=== PATIENT | male | born 1960 | race Caucasian/White ===

== ENCOUNTER → 2016-11-04 | Outpatient (CLI) | payer OTHER ==
[~2016-11-04] MED LIST: LISI-725 PO; MISC1TAB74 PO
[2016-11-04 12:22] LABS: BASO % 0.3 %; BASO ABS # 0.02 K/uL (0-0.2); COMPLETE YES; EOS % 3.7 %; HEMATOCRIT 53.9 % (42-52); IG% 0.8 %; LYMPH % 40.2 %; LYMPH ABS # 3.08 K/uL (1.2-3.4); MEAN CELL VOLUME 91.8 fL (80-100); MEAN CORPUSCULAR HEMOGLOBIN 31.9 pg (25-34); MEAN CORPUSCULAR HGB CONC 34.7 g/dl (32-36); MEAN PLATELET VOLUME 11.3 fL (7.4-10.4); MONO % 9.6 %; NEUT % 45.4 %; PLATELET COUNT 184 K/uL (130-400); RED BLOOD COUNT 5.87 M/uL (4.7-6.1); WHITE BLOOD COUNT 7.67 K/uL (4.8-10.8)
[2016-11-04 13:56] LABS: ALT/SGPT 70 U/L (12-78); AST/SGOT 42 U/L (15-37); BLOOD UREA NITROGEN 13 mg/dl (7-18); BUN/CREATININE RATIO 13.5 (10-20); CALCIUM 9.2 mg/dl (8.5-10.1); CARBON DIOXIDE 25 mmol/L (21-32); CHLORIDE 107 mmol/L (98-107); CREATININE 0.96 mg/dl (0.60-1.40); GLUCOSE 85 mg/dl (70-99); HDL CHOLESTEROL 37 mg/dl; POTASSIUM 4.6 mmol/L (3.5-5.1); SODIUM 142 mmol/L (136-145)
[2016-11-04 14:06] LABS: ALB/GLOB RATIO 1.1 (0.9-2); ALKALINE PHOSPHATASE 72 U/L (45-117); CHOLESTEROL 154 mg/dl (0-200); CHOLESTEROL/HDL RATIO 4.2; LDL CHOLESTEROL CALCULATED 69 mg/dl; THYROID STIMULATING HORMONE 0.616 uIu/ml (0.300-4.500); TRIGLYCERIDES 239 mg/dl (0-150); VERY LOW DENSITY LIPOPROT CALC 48 mg/dl
[2016-11-05 13:04] LABS: URINE APPEARANCE TURBID (CLEAR); URINE COLOR DK YELLOW; URINE NITRITE NEG (NEG); URINE SPECIFIC GRAVITY 1.033 (1.000-1.030); UROBILINOGEN NEG (NEG)
[2016-11-05 13:18] LABS: MANUAL MICROSCOPIC REQUIRED? NO; REVIEW REQ? NO; URINE BILIRUBIN NEG (NEG)
[2016-11-05 13:45] LABS: RATIO 84.7 mcg/mg (0-30.0)
== END | disposition home or self-care (01) ==
LOC: C.LABBFT 07:41
PROVIDERS: ATTEND Internal Medicine
DX: I10 Essential (primary) hypertension (principal); R39.89 Other symptoms and signs involving the genitourinary system; D75.1 Secondary polycythemia

== ENCOUNTER 2025-05-09 17:20 | Inpatient (IN) ==
[2025-05-09 17:46] LABS: Hematocrit (blood only) 45.7 % (42.0-52.0); Hemoglobin 15.4 g/dl (14.0-18.0); Immature Granulocytes # (auto) 0.04 K/uL (0.01-0.20); Immature Granulocytes % (auto) 0.5 %; Mean Corpuscular Hemoglobin 29.9 pg (25.0-34.0); Mean Corpuscular Volume 88.7 fL (80.0-100.0); Platelet Count 239 K/uL (130-400); RDW Standard Deviation 55.9 fL (36.4-46.3); Red Blood Count 5.15 M/uL (4.70-6.10); White Blood Count 8.21 K/ul (4.8-10.8)
[2025-05-09 18:11] LABS: Appearance Urine Clear (Clear); Bacteria Urine Automated None Seen (None Seen); Cast Urine Automated 0-2 /lpf (0-2); Glucose Urine UA Negative (Negative); WBC Urine Automated 0-5 /hpf (0-5)
[2025-05-09 18:16] LABS: Alanine Aminotransferase 158 U/L (7-52); Albumin Globulin Ratio 1.5 (0.9-2); Alkaline Phosphatase 316 U/L (34-104); Anion Gap 8 (3-11); Bilirubin,Total 19.9 mg/dl (0.2-1.0); Blood Urea Nitrogen 22 mg/dl (6-23); Calcium 9.3 mg/dl (8.6-10.3); Carbon Dioxide 23 mmol/L (21-32); Chloride 109 mmol/L (98-107); Creatinine Clr Calc Pharmacy 54.4 ml/min; Globulin 2.8 gm/dl (2.5-4.0); Glucose 98 mg/dl (70-99(Fasting)); Potassium 3.7 mmol/L (3.5-5.1); Sodium 140 mmol/L (136-145); Total Protein 7.0 gm/dl (6.0-8.3)
--- NOTE | 2025-05-09 19:15 | Emergency Department Note ---
Impression & Plan Elevated bilirubin, High serum chloride, Transaminitis, Dilated cbd, acquired ED Provider Note NAME: GLENN CRUZ AGE: 64 SEX: M : 1960 ARRIVES VIA: Walk-In INFORMANT: Patient ED PROVIDER(S): Justin Vang DO CHIEF COMPLAINT: Painless jaundice HPI: Patient is a 64-year-old male who presents to the ER as he notes that over the past 2 weeks he noticed that his stools have become very pale. He notes his urine has become very dark. He followed up with his PCP and had blood work and his bilirubin was elevated and consequently he was sent in here. He denies any headache or change in vision. No chest pain or shortness of breath. provides additional history notes that he has become jaundiced over the past week. He notes he is very itchy. Denies any other complaints. ADDITIONAL HISTORY OBTAINED: Per HPI Chronic Medical/Social Conditions Affecting Care: Per HPI PAST MEDICAL HISTORY:See Below PAST SURGICAL HISTORY:See Below FAMILY HISTORY:See Below SOCIAL HISTORY:See Below HOME MEDICATIONS:See Below ALLERGIES:See Below VITALS:See Below PHYSICAL EXAMINATION: GENERAL: Sitting up in bed, alert, well appearing, well nourished, no distress, non-toxic EYE EXAM: Scleral icterus. PERRL and EOM's grossly intact. OROPHARYNX: no exudate, no erythema, lips, buccal mucosa, and tongue normal and mucous membranes are moist NECK: supple, no nuchal rigidity, no adenopathy, non-tender LUNGS: Clear to auscultation. Normal chest wall mechanics HEART: no murmurs, S1 normal and S2 normal ABDOMEN: abdomen soft, non-tender, normo-active bowel sounds, no masses, no rebound or guarding. BACK: Back is symmetrical on inspection and there is no deformity, no midline tenderness, no CVA tenderness. SKIN: no rashes and no bruising UPPER EXTREMITIES: upper extremities are grossly normal. LOWER EXTREMITIES: No pitting edema. NEURO EXAM: Normal sensorium, cranial nerves II-XII grossly intact, normal speech, no gross weakness of arms, no gross weakness of legs. MEDICAL DECISION MAKING: Patient is a 64-year-old male who presents ER for the above-stated complaint. IV was established and blood work was obtained. Labs showed no significant leukocytosis or anemia. BMP with slightly elevated chloride at 109. T. bili elevated at 20. LFTs elevated at 150. Lipase was not reportable. UA did have nitrates but I do favor this secondary to the elevated bilirubin. CT abdomen pelvis showed dilation of the CBD question if this secondary to stone versus stricture or with some lymphadenopathy. Discussed with their shrimp peeling machine operator Dr. Gilbert who recommended transfer. Discussed with [facility] and patient was accepted by Dr. Sanchez. The transfer center notes that patient will not be receiving a bed tonight and likely at some point tomorrow and consequently discussed with the hospitalist Dr. Chase for further evaluation management treatment. Antibiotics not given as patient was hemodynamically stable does not appear to be infected. CT abdomen pelvis also suggested proteinaceous cyst versus some with hemorrhage present but hemoglobin was stable and do favor this is proteinaceous in nature. Consults/Care Managements Discussions: Per MDM Triage Nursing notes reviewed. Limited review of prior medical records performed Vital Signs: reviewed and remarkable for no significant abnormalities Differential diagnosis: Differential diagnoses includes but is not limited to gastritis, peptic ulcer disease, GERD, gallbladder disease, pancreatitis, small bowel obstruction, appendicitis, diverticulitis, hernia, urinary tract infection, torsion, /ectopic (if female), perforation, trauma, infectious. ER treatment provided: See below Diagnostics interpreted by me include EKG and cardiac monitoring as listed below: -Cardiac Monitoring: An order was placed for continuous cardiac monitoring. The monitor shows a rate of 60 with sinus rhythm. -ECG: none -Laboratory studies:Interpreted by me as stated above in MDM and shown below. Imaging studies: Xrays: As interpreted by me:none CTs show: CT abdomen pelvis per my preliminary interpretation showed no obvious bowel obstruction CT abdomen pelvis per radiology as described above Procedures:none Critical Care: None Past Med/Surg History Problem List (Updated 05/10/25 @ 00:51 by Justin Vang DO) Dilated cbd, acquired (Acute) Transaminitis (Acute) High serum chloride (Acute) Elevated bilirubin (Acute) Hypertriglyceridemia Prediabetes Right knee pain Hepatitis C No more than 2g Tylenol daily No NSAIDS allowed. Tubular adenoma Dyslipidemia Secondary polycythemia Nicotine dependence Hypertension Medical History Dyslipidemia Fatty liver History of hepatitis C Hypertension Kidney stones Nicotine dependence Secondary polycythemia Tubular adenoma Surgical History History of arthroscopy of right knee Status post trigger finger release History of carpal tunnel surgery of right wrist History of colonoscopy with polypectomy History of tooth extraction History of wisdom tooth extraction H/O varicose vein ligation S/P cholecystectomy S/P appendectomy Family History Father Colorectal cancer Other No family history of adverse response to anesthesia Denies family history of Ovarian cancer Prostate cancer Myocardial infarction Breast cancer Social History (Updated 02/23/25 @ 06:55 by LUISA José) Smoking Status: Former smoker Tobacco Type: Cigarettes Age Started Using Tobacco: 19; Age Quit Using Tobacco: 61; packs per day: 0.5; Cigarettes Per Day: 10; Second Hand Exposure: No; Do You Dip or Chew Tobacco: No; Hx Alcohol Use: Yes Alcohol type: beer Hx Substance Use: No Preferred Language: Uzbek Communication Ability: Effective Mate Chief Required: No Beliefs That Will Affect Care: None marital status: Current Living Situation: Spouse current occupational status: retired Feels Safe at Home: Yes Diet: regular caffeine: Yes Dental Care, Regularly: No Physical Activity Frequency: Daily Seatbelt Use: always Sunscreen Use: Yes Assistive Devices: Glasses Allergies Allergies Allergy/AdvReac Type Severity Reaction Status Date / Time amlodipine Allergy Mild SWELLING Unverified 05/09/25 19:22 IN ANKLES NSAIDS (Non-Steroidal AdvReac Unknown Unknown Verified 05/09/25 19:18 Anti-Inflamma Home Meds Home Medications Medication Instructions Recorded Confirmed aspirin 81 mg tablet,delayed 81 mg PO DAILY 01/21/23 05/09/25 release Previous Rx's Medication Instructions Recorded green tea leaf extract 150 mg 150 mg PO DAILY #30 caps 05/01/22 capsule atorvastatin 20 mg tablet 20 mg PO QPM #90 tabs 01/06/25 lisinopril 40 mg tablet 40 mg PO DAILY #90 tabs 02/22/25 Results & Data (ED) Vital Signs Vital Signs - 24 hr 05/09/25 17:22 05/09/25 18:51 05/09/25 19:04 Temperature 36.8 C Temperature Source Temporal Artery Scan Pulse Rate 64 54 L Pulse Rate [Apical] 55 L Pulse Rhythm [Apical] Regular Pulse Strength [Apical] Normal Respiratory Rate 17 22 Respiratory Effort / Characteristics Non-Labored Spontaneous Respiratory Depth Normal Normal Respiratory Pattern Regular Regular Blood Pressure 84/73 L Blood Pressure [Right Arm] 122/84 Blood Pressure Mean 76 Blood Pressure Mean [Right Arm] 96 Blood Pressure Position Sitting Blood Pressure Position [Right Arm] Semi-fowlers Pulse Oximetry 96 98 Oxygen Delivery Method Room Air Room Air Sepsis Recent Fever Within 48 Hours No Sepsis New/Unexplained Change in Mental Status No Sepsis Action Taken by Nursing No Action Required 05/09/25 20:00 05/09/25 22:00 Temperature Temperature Source Pulse Rate Pulse Rate [Apical] 57 L 54 L Pulse Rhythm [Apical] Pulse Strength [Apical] Respiratory Rate 18 20 Respiratory Effort / Characteristics Non-Labored Spontaneous Non-Labored Spontaneous Respiratory Depth Normal Normal Respiratory Pattern Blood Pressure Blood Pressure [Right Arm] 123/82 130/82 Blood Pressure Mean Blood Pressure Mean [Right Arm] 95 98 Blood Pressure Position Blood Pressure Position [Right Arm] Pulse Oximetry 98 94 Oxygen Delivery Method Room Air Room Air Sepsis Recent Fever Within 48 Hours Sepsis New/Unexplained Change in Mental Status Sepsis Action Taken by Nursing Laboratory Data 05/09/25 17:35 05/09/25 17:35 Lab Results 05/09/25 05/09/25 Range/Units 17:35 19:01 WBC 8.21 (4.8-10.8) K/ul RBC 5.15 (4.70-6.10) M/uL Hgb 15.4 (14.0-18.0) g/dl Hct 45.7 (42.0-52.0) % MCV 88.7 (80.0-100.0) fL MCH 29.9 (25.0-34.0) pg MCHC 33.7 (32.0-36.0) g/dL RDW Std Deviation 55.9 H (36.4-46.3) fL RDW Coeff of [place] 17.8 H (11.5-14.5) % Plt Count 239 (130-400) K/uL MPV 11.8 (9.4-12.4) fL Immature Gran % (Auto) 0.5 % Neut % (Auto) 71.0 % Lymph % (Auto) 15.2 % [place] % (Auto) 10.6 % Eos % (Auto) 1.8 % Baso % (Auto) 0.9 % Neut # (Auto) 5.83 (1.40-6.50) K/uL Lymph # (Auto) 1.25 (1.20-3.40) K/uL Craven # (Auto) 0.87 H (0.11-0.59) K/uL Eos # (Auto) 0.15 (0.00-0.50) K/uL Baso # (Auto) 0.07 (0.00-0.20) K/uL Immature Gran # (Auto) 0.04 (0.01-0.20) K/uL Sodium 140 (136-145) mmol/L Potassium 3.7 (3.5-5.1) mmol/L Chloride 109 H (98-107) mmol/L Carbon Dioxide 23 (21-32) mmol/L Anion Gap 8 (3-11) BUN 22 (6-23) mg/dl Creatinine 1.38 (0.6-1.4) mg/dl Est Cr Clr Drug Dosing 54.4 ml/min eGFR 56.40 BUN/Creatinine Ratio 15.9 (10-20) Glucose 98 (70-99(Fasting)) mg/dl Calcium 9.3 (8.6-10.3) mg/dl Total Bilirubin 19.9 H (0.2-1.0) mg/dl Direct Bilirubin TNP 11.7 H AST 152 H (13-39) U/L ALT 158 H (7-52) U/L Alkaline Phosphatase 316 H (34-104) U/L Total Protein 7.0 (6.0-8.3) gm/dl Albumin 4.2 (3.4-5.0) gm/dl Globulin 2.8 (2.5-4.0) gm/dl Albumin/Globulin Ratio 1.5 (0.9-2) Lipase TNP TNP TSH 1.264 (0.300-4.500) uIu/ml Urine Color Dark Yellow Urine Appearance Clear (Clear) Urine pH 5.5 (4.5-7.5) Ur Specific [place] 1.022 (1.000-1.030) Urine Protein 1+ H (Negative) Urine Glucose (UA) Negative (Negative) Urine Ketones Negative (Negative) Urine Blood Negative (Negative) Urine Nitrite Positive A (Negative) Urine Bilirubin 3+ H (Negative) Urine Urobilinogen Negative (Negative) Ur Leukocyte Esterase 1+ H (Negative) Urine WBC (Auto) 0-5 (0-5) /hpf Urine RBC (Auto) 3-5 H (0-2) /hpf U Hyaline Cast (Auto) 0-2 (0-2) /lpf U Epithel Cells (Auto) 3-5 H (0-2) /hpf Urine Bacteria (Auto) None Seen (None Seen) Amorphous Sediment Present A (None Prsent) Urine Comment Administered Medications Lactated Ringer's (Lr) 1,000 mls @ 100 mls/hr IV .Q10H STA Stop: 05/10/25 08:38 Last Admin: 05/09/25 22:43 Dose: 100 mls/hr Documented By: CTK Discontinued Medications Ioversol (Optiray 320 100ml) 93 ml IV ONCE ONE Stop: 05/09/25 19:37 Last Admin: 05/09/25 19:36 Dose: 93 ml Documented By: GES Imaging Data Radiologist's Impression: Abdomen/Pelvis CT 05/09/25 19:10 CT ABDOMEN and PELVIS with INTRAVENOUS CONTRAST HISTORY: Abdominal pain TECHNIQUE: CT abdomen and pelvis with contrast. IV CONTRAST: 100 mL of OMNIPAQUE 300 ENTERIC CONTRAST: Not Given COMPARISON: None FINDINGS: LOWER CHEST: Mild cardiac enlargement. Mild coronary calcifications LIVER: No focal lesion identified. GALLBLADDER/BILIARY: Surgically absent gallbladder. There is severe distention of the common bile duct measuring up to 1.7 cm in caliber. There is an abrupt transition in caliber of the common bile duct distally (series 300, image 70). In this area, there is a radiodense material/structure measuring 7 mm (series 300, image 71). Severe intrahepatic biliary dilation is seen upstream. Also in this area are multiple soft tissue density structures in the portacaval area measuring up to 3.5 cm (series 300, image 78). These probably represent enlarged lymph nodes SPLEEN: Unremarkable. PANCREAS: Unremarkable. ADRENALS: Unremarkable. KIDNEYS: Cortical cysts. There are intermediate density exophytic lesions arising from the right kidney upper pole in the left kidney lower pole measuring up to 2.0 cm. 2 mm nonobstructing calculi of the left kidney. No hydronephrosis identified. PERITONEUM/RETROPERITONEUM. No lymphadenopathy by size criteria. No aortic aneurysm. Mild atherosclerosis GASTROINTESTINAL: No obstruction. REPRODUCTIVE: Normal-sized prostate gland. URINARY BLADDER: Mild inflammatory changes. ABDOMINAL WALL: Small fat-containing left inguinal hernia. BONES: No acute findings. IMPRESSION: Severe biliary tree dilatation as above with a suggested 7 mm high density material versus structure in the region of the distal common bile duct where an abrupt common bile duct caliber transition is seen. This could represent an obstructive choledocholithiasis. Stricturing is also possible. However given the presence of lymphadenopathy surrounding this area, difficult to exclude an obstructive lesion. Recommend MRCP/ERCP evaluation. Intermediate density exophytic lesions of the kidneys bilaterally likely represent cysts with proteinaceous versus hemorrhagic contents however recommend nonemergent renal ultrasound evaluation to exclude complexity. Electronically signed by Bong Nguyen 05-09-2025 8:38 PM Discharge Plan Visit Data Chief Complaint: Referred by Doctor Stated Complaint: LIVER, REF BY ED Provider: Justin Vang Discharge Problem: Elevated bilirubin, High serum chloride, Transaminitis, Dilated cbd, acquired Condition: Fair Discharge Instructions Interventions: ED Discharge Assessment Last Done: 05/09/25 23:43
[2025-05-09] MEDS: OPTIRAY 320 100ml IV ONE (19:36)
--- NOTE | 2025-05-09 20:39 | CT Scan Report ---
CT ABDOMEN and PELVIS with INTRAVENOUS CONTRAST HISTORY: Abdominal pain TECHNIQUE: CT abdomen and pelvis with contrast. IV CONTRAST: 100 mL of OMNIPAQUE 300 ENTERIC CONTRAST: Not Given COMPARISON: None FINDINGS: LOWER CHEST: Mild cardiac enlargement. Mild coronary calcifications LIVER: No focal lesion identified. GALLBLADDER/BILIARY: Surgically absent gallbladder. There is severe distention of the common bile duct measuring up to 1.7 cm in caliber. There is an abrupt transition in caliber of the common bile duct distally (series 300, image 70). In this area, there is a radiodense material/structure measuring 7 mm (series 300, image 71). Severe intrahepatic biliary dilation is seen upstream. Also in this area are multiple soft tissue density structures in the portacaval area measuring up to 3.5 cm (series 300, image 78). These probably represent enlarged lymph nodes SPLEEN: Unremarkable. PANCREAS: Unremarkable. ADRENALS: Unremarkable. KIDNEYS: Cortical cysts. There are intermediate density exophytic lesions arising from the right kidney upper pole in the left kidney lower pole measuring up to 2.0 cm. 2 mm nonobstructing calculi of the left kidney. No hydronephrosis identified. PERITONEUM/RETROPERITONEUM. No lymphadenopathy by size criteria. No aortic aneurysm. Mild atherosclerosis GASTROINTESTINAL: No obstruction. REPRODUCTIVE: Normal-sized prostate gland. URINARY BLADDER: Mild inflammatory changes. ABDOMINAL WALL: Small fat-containing left inguinal hernia. BONES: No acute findings. IMPRESSION: Severe biliary tree dilatation as above with a suggested 7 mm high density material versus structure in the region of the distal common bile duct where an abrupt common bile duct caliber transition is seen. This could represent an obstructive choledocholithiasis. Stricturing is also possible. However given the presence of lymphadenopathy surrounding this area, difficult to exclude an obstructive lesion. Recommend MRCP/ERCP evaluation. Intermediate density exophytic lesions of the kidneys bilaterally likely represent cysts with proteinaceous versus hemorrhagic contents however recommend nonemergent renal ultrasound evaluation to exclude complexity. Electronically signed by Bong Nguyen 05-09-2025 8:38 PM
[2025-05-09] MEDS: LACTATED RINGER'S 1,000 ML IV STA (22:43)
--- NOTE | 2025-05-09 22:51 | History & Physical Report ---
Date of Service May 09, 2025 Assessment & Plan (1) Obstructive jaundice: Plan: Assessment and plan below following discussion of case with ED provider and reviewing patient history/pertinent normal/abnormal diagnostic test results. Obstructive jaundice Complicated UTI, no sepsis for now hypertension, stable hyperlipidemia, on statin Rx prediabetes, outpatient hemoglobin A1c of 5.9 today NAFLD hx HCV status post Rx Incidental finding of kidney cysts on imaging past tobacco abuse Admit to medical Urine CSMaddie [place] [facility] [place] (Patient kindly accepted for transfer by Dr. Vj Sanchez of hospitalist service. Transfer paperwork already completed by ED provider.) N.p.o. in anticipation of procedure Follow LFTs, hold statin for now Outpatient urology eval for kidney cysts DVT prophylaxis. SCDs re: possible procedure Full code Text document was generated using [employer] voice recognition software. It may contain grammatical or spelling errors. Kindly contact undersigned for clarification of any documentation item in question. History of Present Illness Chief Complaint: Abnormal blood work, ultrasound Primary Care Provider: Minna Barrett DO History obtained from patient and records. Medical history significant for hypertension, hyperlipidemia, prediabetes, NAFLD, HCV status post Rx, past tobacco abuse. 2 weeks ago, patient noted pale stools associated with dark urine. No abdominal pain, no fever, no chills. Generalized weakness. Patient noted to be jaundiced by last week associated with pruritus. Denies inordinate Tylenol Rx intake or alcohol consumption. 1 episode of emesis today. Patient seen by dolores De La O PCP today for evaluation. Abnormal LFTs noted, AST 186, ALT 191, alk phos 380, total bilirubin 17.7 Outpatient liver ultrasound showed 1. Intrahepatic and extrahepatic biliary duct dilation and indeterminate right renal mass. Contrast enhanced MRI abdomen with MRCP is recommended for further evaluation. 2. Hepatic steatosis. Upper abdominal pain during ultrasound procedure as per patient. Patient directed to ER for evaluation. [facility] recommended tertiary care transfer for possible ERCP. [place] [facility] [place]. Medical History as above Surgical History : Knee surgery, trigger finger surgery, carpal tunnel surgery, dental surgery, varicose vein ligation, cholecystectomy, appendectomy Family History : Colon cancer, heart disease Personal/Social history : Past tobacco abuse, occasional EtOH intake, retired from concrete work Allergies Allergy/AdvReac Type Severity Reaction Status Date / Time amlodipine Allergy Mild SWELLING Unverified 08/04/25 19:22 IN ANKLES NSAIDS (Non-Steroidal AdvReac Unknown Unknown Verified 05/09/25 19:18 Anti-Inflamma Home Medications Medication Instructions Recorded Confirmed Type green tea leaf extract 150 mg 150 mg PO DAILY #30 caps 05/01/22 05/09/25 Rx capsule aspirin 81 mg tablet,delayed 81 mg PO DAILY 01/21/23 05/09/25 History release atorvastatin 20 mg tablet 20 mg PO QPM #90 tabs 01/06/25 05/09/25 Rx lisinopril 40 mg tablet 40 mg PO DAILY #90 tabs 02/22/25 05/09/25 Rx Past Med/Surg History Problem List (Updated 05/10/25 @ 04:50 by August Zabala MD) Obstructive jaundice Dilated cbd, acquired (Acute) Transaminitis (Acute) High serum chloride (Acute) Elevated bilirubin (Acute) Hypertriglyceridemia Prediabetes Right knee pain Hepatitis C No more than 2g Tylenol daily No NSAIDS allowed. Tubular adenoma Dyslipidemia Secondary polycythemia Nicotine dependence Hypertension Medical History Dyslipidemia Fatty liver History of hepatitis C Hypertension Kidney stones Nicotine dependence Secondary polycythemia Tubular adenoma Surgical History History of arthroscopy of right knee Status post trigger finger release History of carpal tunnel surgery of right wrist History of colonoscopy with polypectomy History of tooth extraction History of wisdom tooth extraction H/O varicose vein ligation S/P cholecystectomy S/P appendectomy Family History Father Colorectal cancer Other No family history of adverse response to anesthesia Denies family history of Ovarian cancer Prostate cancer Myocardial infarction Breast cancer Social History (Updated 02/23/25 @ 06:55 by LUISA José) Smoking Status: Former smoker Tobacco Type: Cigarettes Age Started Using Tobacco: 19; Age Quit Using Tobacco: 61; packs per day: 0.5; Cigarettes Per Day: 10; Second Hand Exposure: No; Do You Dip or Chew Tobacco: No; Hx Alcohol Use: No Hx Substance Use: No Preferred Language: Turkmen Communication Ability: Effective Equipment Worker Required: No Beliefs That Will Affect Care: None marital status: Current Living Situation: Spouse current occupational status: retired Feels Safe at Home: Yes Diet: regular caffeine: Yes Dental Care, Regularly: No Physical Activity Frequency: Daily Seatbelt Use: always Sunscreen Use: Yes Assistive Devices: Glasses and Hearing Aid - Bilateral Review of Systems Review of Systems: As per HPI, all other systems reviewed and negative Physical Exam Physical Exam: GENERAL: Comfortable, pleasant, no respiratory distress SKIN: Normal color, warm HEENT: Alopecia, bespectacled, pink palpebral conjunctivae, no ptosis, dry buccal mucosa NECK : Supple, no tenderness CHEST : CTA, no tenderness HEART : Bradycardic, systolic murmur ABDOMEN: Some distention, nontender EXTREMITIES : No LE swelling/tenderness, palpable pulses, no other conspicuous deformities noted NEUROLOGIC : Coherent, no facial asymmetry, no other gross focality Results & Data Results & Data Vital Signs (Past 12 Hours) Vital Signs Temp Pulse Pulse Resp BP BP Pulse Ox 05/09/25 22:00 54 L 20 130/82 94 05/09/25 20:00 57 L 18 123/82 98 05/09/25 19:04 54 L 05/09/25 18:51 55 L 22 122/84 98 05/09/25 17:22 36.8 C 64 17 84/73 L 96 O2 Del Method 05/09/25 22:00 Room Air 05/09/25 20:00 Room Air 05/09/25 19:04 05/09/25 18:51 Room Air 05/09/25 17:22 Room Air Laboratory Results Laboratory Results WBC 8.21 K/ul (4.8-10.8) 05/09/25 17:35 RBC 5.15 M/uL (4.70-6.10) 05/09/25 17:35 Hgb 15.4 g/dl (14.0-18.0) 05/09/25 17:35 Hct 45.7 % (42.0-52.0) 05/09/25 17:35 MCV 88.7 fL (80.0-100.0) 05/09/25 17:35 MCH 29.9 pg (25.0-34.0) 05/09/25 17:35 MCHC 33.7 g/dL (32.0-36.0) 05/09/25 17:35 RDW Std Deviation 55.9 fL (36.4-46.3) H 05/09/25 17:35 RDW Coeff of [place] 17.8 % (11.5-14.5) H 05/09/25 17:35 Plt Count 239 K/uL (130-400) 05/09/25 17:35 MPV 11.8 fL (9.4-12.4) 05/09/25 17:35 Immature Gran % (Auto) 0.5 % 05/09/25 17:35 Neut % (Auto) 71.0 % 05/09/25 17:35 Lymph % (Auto) 15.2 % 05/09/25 17:35 [place] % (Auto) 10.6 % 05/09/25 17:35 Eos % (Auto) 1.8 % 05/09/25 17:35 Baso % (Auto) 0.9 % 05/09/25 17:35 Neut # (Auto) 5.83 K/uL (1.40-6.50) 05/09/25 17:35 Lymph # (Auto) 1.25 K/uL (1.20-3.40) 05/09/25 17:35 [place] # (Auto) 0.87 K/uL (0.11-0.59) H 05/09/25 17:35 Eos # (Auto) 0.15 K/uL (0.00-0.50) 05/09/25 17:35 Baso # (Auto) 0.07 K/uL (0.00-0.20) 05/09/25 17:35 Immature Gran # (Auto) 0.04 K/uL (0.01-0.20) 05/09/25 17:35 Sodium 140 mmol/L (136-145) 05/09/25 17:35 Potassium 3.7 mmol/L (3.5-5.1) 05/09/25 17:35 Chloride 109 mmol/L (98-107) H 05/09/25 17:35 Carbon Dioxide 23 mmol/L (21-32) 05/09/25 17:35 Anion Gap 8 (3-11) 05/09/25 17:35 BUN 22 mg/dl (6-23) 05/09/25 17:35 Creatinine 1.38 mg/dl (0.6-1.4) 05/09/25 17:35 Est Cr Clr Drug Dosing 54.4 ml/min 05/09/25 17:35 eGFR 56.40 05/09/25 17:35 BUN/Creatinine Ratio 15.9 (10-20) 05/09/25 17:35 Glucose 98 mg/dl (70-99(Fasting)) 05/09/25 17:35 Calcium 9.3 mg/dl (8.6-10.3) 05/09/25 17:35 Total Bilirubin 19.9 mg/dl (0.2-1.0) H 05/09/25 17:35 Direct Bilirubin TNP 05/09/25 19:01 AST 152 U/L (13-39) H 05/09/25 17:35 ALT 158 U/L (7-52) H 05/09/25 17:35 Alkaline Phosphatase 316 U/L (34-104) H 05/09/25 17:35 Total Protein 7.0 gm/dl (6.0-8.3) 05/09/25 17:35 Albumin 4.2 gm/dl (3.4-5.0) 05/09/25 17:35 Globulin 2.8 gm/dl (2.5-4.0) 05/09/25 17:35 Albumin/Globulin Ratio 1.5 (0.9-2) 05/09/25 17:35 Lipase TNP 05/09/25 19:01 Urine Color Dark Yellow 05/09/25 17:35 Urine Appearance Clear (Clear) 05/09/25 17:35 Urine pH 5.5 (4.5-7.5) 05/09/25 17:35 Ur Specific [place] 1.022 (1.000-1.030) 05/09/25 17:35 Urine Protein 1+ (Negative) H 05/09/25 17:35 Urine Glucose (UA) Negative (Negative) 05/09/25 17:35 Urine Ketones Negative (Negative) 05/09/25 17:35 Urine Blood Negative (Negative) 05/09/25 17:35 Urine Nitrite Positive (Negative) A 05/09/25 17:35 Urine Bilirubin 3+ (Negative) H 05/09/25 17:35 Urine Urobilinogen Negative (Negative) 05/09/25 17:35 Ur Leukocyte Esterase 1+ (Negative) H 05/09/25 17:35 Urine WBC (Auto) 0-5 /hpf (0-5) 05/09/25 17:35 Urine RBC (Auto) 3-5 /hpf (0-2) H 05/09/25 17:35 U Hyaline Cast (Auto) 0-2 /lpf (0-2) 05/09/25 17:35 U Epithel Cells (Auto) 3-5 /hpf (0-2) H 05/09/25 17:35 Urine Bacteria (Auto) None Seen (None Seen) 05/09/25 17:35 Amorphous Sediment Present (None Prsent) A 05/09/25 17:35 Urine Comment 05/09/25 17:35 Impressions Abdomen/Pelvis CT 05/09/25 19:10 CT ABDOMEN and PELVIS with INTRAVENOUS CONTRAST HISTORY: Abdominal pain TECHNIQUE: CT abdomen and pelvis with contrast. IV CONTRAST: 100 mL of OMNIPAQUE 300 ENTERIC CONTRAST: Not Given COMPARISON: None FINDINGS: LOWER CHEST: Mild cardiac enlargement. Mild coronary calcifications LIVER: No focal lesion identified. GALLBLADDER/BILIARY: Surgically absent gallbladder. There is severe distention of the common bile duct measuring up to 1.7 cm in caliber. There is an abrupt transition in caliber of the common bile duct distally (series 300, image 70). In this area, there is a radiodense material/structure measuring 7 mm (series 300, image 71). Severe intrahepatic biliary dilation is seen upstream. Also in this area are multiple soft tissue density structures in the portacaval area measuring up to 3.5 cm (series 300, image 78). These probably represent enlarged lymph nodes SPLEEN: Unremarkable. PANCREAS: Unremarkable. ADRENALS: Unremarkable. KIDNEYS: Cortical cysts. There are intermediate density exophytic lesions arising from the right kidney upper pole in the left kidney lower pole measuring up to 2.0 cm. 2 mm nonobstructing calculi of the left kidney. No hydronephrosis identified. PERITONEUM/RETROPERITONEUM. No lymphadenopathy by size criteria. No aortic aneurysm. Mild atherosclerosis GASTROINTESTINAL: No obstruction. REPRODUCTIVE: Normal-sized prostate gland. URINARY BLADDER: Mild inflammatory changes. ABDOMINAL WALL: Small fat-containing left inguinal hernia. BONES: No acute findings. IMPRESSION: Severe biliary tree dilatation as above with a suggested 7 mm high density material versus structure in the region of the distal common bile duct where an abrupt common bile duct caliber transition is seen. This could represent an obstructive choledocholithiasis. Stricturing is also possible. However given the presence of lymphadenopathy surrounding this area, difficult to exclude an obstructive lesion. Recommend MRCP/ERCP evaluation. Intermediate density exophytic lesions of the kidneys bilaterally likely represent cysts with proteinaceous versus hemorrhagic contents however recommend nonemergent renal ultrasound evaluation to exclude complexity. Electronically signed by Bong Nguyen 05-09-2025 8:38 PM MRCP: 1. Post cholecystectomy status. 2. 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 3. Bilateral kidneys demonstrate multiple simple cortical cysts.
[2025-05-09] MEDS ORDERED: LORazepam 0.5 MG TAB PO PRN (23:14)
[2025-05-09] MEDS ORDERED: PROMETHAZINE 6.25 MG/50.25 ML BAG IV PRN (23:14)
[2025-05-09] MEDS ORDERED: ACETAMINOPHEN 500 MG TAB PO PRN (23:14)
[2025-05-10 00:06] LABS: Thyroid Stimulating Hormone 1.264 uIu/ml (0.300-4.500)
--- NOTE | 2025-05-10 01:29 | Magnetic Resonance Report ---
EXAM: MR MRCP CLINICAL HISTORY: abn lfts TECHNIQUE: Multiplanar/multisequence MRI of the upper abdomen with MRCP was performed without use of gadolinium. COMPARISON: none FINDINGS: The liver is of normal signal intensity without evidence of a hepatic mass. Post cholecystectomy status. Dilated Common hepatic duct with moderate bilobar intrahepatic biliary ductal dilatation. Abrupt narrowing seen at CHD/CBD junction Dilated cystic duct is seen. Trifucration of biliary tree is seen with right anterior(RASD), right posterior(RPSD) and left hepatic (LHD) ducts seen converging to form common hepatic duct. Primary and secondary biliarty confluence are patent. Rest common bile duct is normal in caliber. CHD- 13.4mm Cystic duct- 10mm. RASD-8.1mm RPSD- 7.7mm LHD-8.2mm The adrenal glands demonstrate no gross mass. The pancreas is unremarkable. Bilateral kidneys demonstrate multiple simple cortical cysts. No evidence of upper abdominal ascites or mesenteric mass. IMPRESSION: 1. Post cholecystectomy status. 2. 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 3. Bilateral kidneys demonstrate multiple simple cortical cysts. Electronically signed by James Wesley 05-10-2025 01:29 AM
[2025-05-10 03:43] LABS: Hematocrit (blood only) 45.0 % (42.0-52.0); Hemoglobin 15.2 g/dl (14.0-18.0); Immature Granulocytes # (auto) 0.02 K/uL (0.01-0.20); Immature Granulocytes % (auto) 0.2 %; Mean Corpuscular Hemoglobin 30.0 pg (25.0-34.0); Mean Corpuscular Volume 88.8 fL (80.0-100.0); Platelet Count 227 K/uL (130-400); RDW Standard Deviation 57.1 fL (36.4-46.3); Red Blood Count 5.07 M/uL (4.70-6.10); White Blood Count 8.19 K/ul (4.8-10.8)
[2025-05-10 04:00] LABS: Alanine Aminotransferase 165.0 U/L (7-52); Albumin Globulin Ratio 1.4 (0.9-2); Alkaline Phosphatase 335.0 U/L (34-104); Anion Gap 7.0 (3-11); Bilirubin,Total 21.0 mg/dl (0.2-1.0); Blood Urea Nitrogen 21.0 mg/dl (6-23); Calcium 9.5 mg/dl (8.6-10.3); Carbon Dioxide 25.0 mmol/L (21-32); Chloride 107.0 mmol/L (98-107); Creatinine Clr Calc Pharmacy 59.5 ml/min; Globulin 2.8 gm/dl (2.5-4.0); Glucose 88.0 mg/dl (70-99(Fasting)); Potassium 4.2 mmol/L (3.5-5.1); Sodium 139.0 mmol/L (136-145); Total Protein 6.8 gm/dl (6.0-8.3)
[2025-05-10 04:18] LABS: INR 1.1 (0.9-1.1); Prothrombin Time 12.2 Seconds (9.0-12.0)
[2025-05-10] MEDS: PIPERACILLIN/TAZOBACTAM 4.5 GM/100 ML BAG IV ONE (04:18)
[2025-05-10 04:19] VITALS: RESP 18
[2025-05-10] MEDS: LORATADINE 10 MG TAB PO STA (04:39)
[2025-05-10 07:14] VITALS: BP 141/89; PULSE 58; TEMP 98.1; O2SAT 98
[2025-05-10] MEDS: PIPERACILLIN/TAZOBACTAM 4.5 GM/100 ML BAG IV SCH (10:46)
--- NOTE | 2025-05-10 11:00 | Discharge Summary ---
Date of Service May 10, 2025 Admission HPI Per Admitting Provider History obtained from patient and records. Medical history significant for hypertension, hyperlipidemia, prediabetes, NAFLD, HCV status post Rx, past tobacco abuse. 2 weeks ago, patient noted pale stools associated with dark urine. No abdominal pain, no fever, no chills. Generalized weakness. Patient noted to be jaundiced by last week associated with pruritus. Denies inordinate Tylenol Rx intake or alcohol consumption. 1 episode of emesis today. Patient seen by dolores De La O PCP today for evaluation. Abnormal LFTs noted, AST 186, ALT 191, alk phos 380, total bilirubin 17.7 Outpatient liver ultrasound showed 1. Intrahepatic and extrahepatic biliary duct dilation and indeterminate right renal mass. Contrast enhanced MRI abdomen with MRCP is recommended for further evaluation. 2. Hepatic steatosis. Upper abdominal pain during ultrasound procedure as per patient. Patient directed to ER for evaluation. [facility] GI recommended tertiary care transfer for possible ERCP. Patient [place] [facility] [place]. Medical History as above Surgical History : Knee surgery, trigger finger surgery, carpal tunnel surgery, dental surgery, varicose vein ligation, cholecystectomy, appendectomy Family History : Colon cancer, heart disease Personal/Social history : Past tobacco abuse, occasional EtOH intake, retired from concrete work Admission Exam Per Admitting Provider GENERAL: Comfortable, pleasant, no respiratory distress SKIN: Normal color, warm HEENT: Alopecia, bespectacled, pink palpebral conjunctivae, no ptosis, dry buccal mucosa NECK : Supple, no tenderness CHEST : CTA, no tenderness HEART : Bradycardic, systolic murmur ABDOMEN: Some distention, nontender EXTREMITIES : No LE swelling/tenderness, palpable pulses, no other conspicuous deformities noted NEUROLOGIC : Coherent, no facial asymmetry, no other gross focality Principal Diagnosis Obstructive jaundice Discharge Exam Constitutional + well hydrated; no acute distress Eyes +icterus ENMT external ear and nose normal, oropharynx normal Respiratory normal respiratory effort, lungs clear to auscultation Cardiovascular Rate/Rhythm: regular rate and regular rhythm Gastrointestinal (Abdomen) normal bowel sounds, soft, nontender, no hepatosplenomegaly Neurologic PERRL, EOMI, accommodation nl, no face palsy, no dysarthria Psychiatric A+Ox3, euthymic affect Discharge Data Allergies Allergy/AdvReac Type Severity Reaction Status Date / Time amlodipine Allergy Mild SWELLING Unverified 05/09/25 19:22 IN ANKLES NSAIDS (Non-Steroidal AdvReac Unknown Unknown Verified 05/09/25 19:18 Anti-Inflamma Consultations 05/09/25 21:45 ED Decision to Admit Stat Ordered Studies 05/09/25 19:10 CT abd pelvis IV con only Stat LOWER CHEST: Mild cardiac enlargement. Mild coronary calcifications LIVER: No focal lesion identified. GALLBLADDER/BILIARY: Surgically absent gallbladder. There is severe distention of the common bile duct measuring up to 1.7 cm in caliber. There is an abrupt transition in caliber of the common bile duct distally (series 300, image 70). In this area, there is a radiodense material/structure measuring 7 mm (series 300, image 71). Severe intrahepatic biliary dilation is seen upstream. Also in this area are multiple soft tissue density structures in the portacaval area measuring up to 3.5 cm (series 300, image 78). These probably represent enlarged lymph nodes SPLEEN: Unremarkable. PANCREAS: Unremarkable. ADRENALS: Unremarkable. KIDNEYS: Cortical cysts. There are intermediate density exophytic lesions arising from the right kidney upper pole in the left kidney lower pole measuring up to 2.0 cm. 2 mm nonobstructing calculi of the left kidney. No hydronephrosis identified. PERITONEUM/RETROPERITONEUM. No lymphadenopathy by size criteria. No aortic aneurysm. Mild atherosclerosis GASTROINTESTINAL: No obstruction. REPRODUCTIVE: Normal-sized prostate gland. URINARY BLADDER: Mild inflammatory changes. ABDOMINAL WALL: Small fat-containing left inguinal hernia. BONES: No acute findings. IMPRESSION: Severe biliary tree dilatation as above with a suggested 7 mm high density material versus structure in the region of the distal common bile duct where an abrupt common bile duct caliber transition is seen. This could represent an obstructive choledocholithiasis. Stricturing is also possible. However given the presence of lymphadenopathy surrounding this area, difficult to exclude an obstructive lesion. Recommend MRCP/ERCP evaluation. Intermediate density exophytic lesions of the kidneys bilaterally likely represent cysts with proteinaceous versus hemorrhagic contents however recommend nonemergent renal ultrasound evaluation to exclude complexity. 05/10/25 00:16 MR MRCP Stat The liver is of normal signal intensity without evidence of a hepatic mass. Post cholecystectomy status. Dilated Common hepatic duct with moderate bilobar intrahepatic biliary ductal dilatation. Abrupt narrowing seen at CHD/CBD junction Dilated cystic duct is seen. Trifucration of biliary tree is seen with right anterior(RASD), right posterior(RPSD) and left hepatic (LHD) ducts seen converging to form common hepatic duct. Primary and secondary biliarty confluence are patent. Rest common bile duct is normal in caliber. CHD- 13.4mm Cystic duct- 10mm. RASD-8.1mm RPSD- 7.7mm LHD-8.2mm The adrenal glands demonstrate no gross mass. The pancreas is unremarkable. Bilateral kidneys demonstrate multiple simple cortical cysts. No evidence of upper abdominal ascites or mesenteric mass. IMPRESSION: 1. Post cholecystectomy status. 2. 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 3. Bilateral kidneys demonstrate multiple simple cortical cysts. Hospital Course (1) Obstructive jaundice: 64 year old man with history of hypertension, hyperlipidemia, prediabetes, NAFLD, HCV status post Rx, past tobacco abuse who presents with 2 weeks of change in color of stool and urine and 1 week of jaundice On presentation, CT abd/P noted severe biliary tree dilatation, intermediate density exophytic lesions in kidney b/l likely represents cysts with proteinaceous vs hemorrhagic contents MRCP showed dilated Common hepatic duct, cystic duct with moderate bilobar intrahepatic biliary ductal dilatation and abrupt narrowing seen at CHD/CBD junction, likely proximal biliary benign stricture, b/l kidney demonstrate multiple simple cortical cysts Urinalysis noted positive nitrite, +1 leuk esterase but 0-5 WBC. Hence unlikely UTI. Patient also denied any other urinary symptoms besides change in urine color Patient was initially accepted to transfer to [facility] for ERCP but there was no bed available I spoke with transfer center at [facility] today. They reported GI is able to perform procedure at [facility] instead I spoke with Hospitalist Dr Sams at [facility]. Patient accepted for transfer to [facility] with plan for ERCP tomorrow AM Patient notified and transfered to [facility] Total Time Total Time Spent Total Time Spent (In Minutes): 60 Total Time Includes: Examination of the Patient, Discharge Planning, Medication Reconciliation, Communication With Other Providers and Other Discharge Plan Discharge Items Patient Disposition: Transfer Acute Care Hospital Reason For Visit: OBSTRUCTIVE JAUNDICE Discharge Diagnosis: Obstructive jaundice Condition on Discharge: Fair Activity: Resume your previous activity Non-emergency contact: Primary Care Provider Call non-emergency contact if: you have any medication questions and your symptoms worsen Follow-up/Referrals: Minna Barrett DO [Primary Care Provider] - Diet: Heart Healthy Addtl Attending Provider Instructions: Mr Green You presented to the hospital with change in color of stool, urine and jaundice. Imaging showed narrowing in your bile duct system. You are being transferred to [facility] for an endoscopic procedure called ERCP. It was a pleasure taking care of you Pending Studies at Discharge: No Stand-Alone Forms: My [facility] Skilled Items Patient informed of condition?: Yes DNR: No Discharge Level of Care: Other Communicable Disease: No Discharge Prognosis: Stable Lines: Peripheral IV Urinary Catheter: No Medications and DC Order Prescriptions: Continued green tea leaf extract 150 mg capsule 150 mg PO DAILY Qty: 30 0RF aspirin 81 mg tablet,delayed release (DR/EC) 81 mg PO DAILY atorvastatin 20 mg tablet 20 mg PO QPM Qty: 90 3RF lisinopril 40 mg tablet 40 mg PO DAILY Qty: 90 3RF Hold Instructions: per HEAVEN D/ C - RADHA Discharge Orders: Discharge Order (Routine); Ordered 05/10/25 Ordered By: Tracy Ocampo Admission Data Admit Date/Time: 05/09/25 22:52 Attending Provider: Tracy Ocampo I. Admit Provider: August Zabala Primary Care Provider: Minna Barrett Other Providers: August Zabala
[2025-05-10] MEDS ORDERED: LORATADINE 10 MG TAB PO SCH (21:00)
--- NOTE | 2025-05-11 11:13 | Electrocardiogram Report ---
Test Reason : Blood Pressure : */* mmHG Vent. Rate : 59 BPM Atrial Rate : 59 BPM P-R Int : 166 ms QRS Dur : 92 ms QT Int : 418 ms P-R-T Axes : 71 -23 56 degrees QTcB Int : 413 ms Sinus bradycardia Otherwise normal ECG When compared with ECG of 30-Jan-2021 14:59, No significant change was found Confirmed by Brooks Montanez ([id number]) on 05/11/2025 11:10:39 AM Referred By: Minna Barrett Confirmed By: Brooks Montanez
== END 2025-05-10 11:44 | disposition short-term general hospital (02) | DRG 445 ==
LOC: ED 17:20 → EDINP 22:52 → 2S 23:43